=== PATIENT | male | born 1980 | race Caucasian/White ===

== ENCOUNTER 2016-08-11 12:52 | Emergency (ER) | payer OTHER ==
[2016-08-11 13:19] LABS: HEMOGLOBIN 15.4 gm/dl (14.0-17.5); RED BLOOD COUNT 5.36 M/UL (4.20-5.50); WHITE BLOOD COUNT 9.1 K/UL (4.5-11.0)
[2016-08-11 13:38] LABS: BUN/CREATININE RATIO 10 (0-10)
== END 2016-08-11 13:37 | disposition short-term general hospital (02) ==
LOC: ER1 12:52
PROVIDERS: Emergency Medicine
DX: S06.9X9A Unspecified intracranial injury with loss of consciousness of unspecified duration, initial encounter (principal); S50.812A Abrasion of left forearm, initial encounter; S50.811A Abrasion of right forearm, initial encounter; W10.9XXA Fall (on) (from) unspecified stairs and steps, initial encounter; I10 Essential (primary) hypertension; Y92.009 Unspecified place in unspecified non-institutional (private) residence as the place of occurrence of the external cause
CPT/HCPCS: 36415; 71010; 72170; 80053; 85025; 99283; J7030